=== PATIENT | male | born 1995 | race Two or more races ===

== ENCOUNTER 2018-06-17 19:18 | Emergency (ER) | payer SELFPAY ==
[2018-06-17] MEDS ORDERED: CEPHALEXIN 500 MG CAP PO ONE (19:38)
[2018-06-17] MEDS ORDERED: TDAP ADULT 0.5 ML INJ (BOOSTRIX) IM ONE (19:39)
[2018-06-17 19:42] VITALS: BP 148/91
--- NOTE | 2018-06-17 19:43 | EDPHY ---
H & P Time Seen by Provider: 06/17/18 19:32 HPI/ROS: CHIEF COMPLAINT: Nail gun injury left foot HISTORY OF PRESENT ILLNESS: 22-year-old male with out-of-date tetanus sustained accidental nail gun injury when a nail shot through the dorsal aspect of his foot approximately 4th metatarsal level, through and through. He removed it. Did not enter through the plantar aspect. He is able to bear weight albeit with pain. PHYSICAL EXAM (Prior to examination, patient consented to physical exam, hands were washed and my usual and customary physical exam procedures followed) 1) GENERAL: Well-developed, well-nourished, alert and oriented. Appears to be in no acute distress. 2) HEAD: Normocephalic 3) HEENT: sclera anicteric 4) LUNGS: Breathing comfortably. 5) SKIN: Puncture wound without signs of infection to the 4th metatarsal, through and through. No fetid odor. No erythema. 6) MUSCULOSKELETAL: Tender to palpation osseous structure underlying this. DP PT pulses present and brisk. Constitutional: Initial Vital Signs Temperature (C) 37.5 C 06/17/18 19:40 Heart Rate 74 06/17/18 19:40 Respiratory Rate 16 06/17/18 19:40 Blood Pressure 148/91 H 06/17/18 19:40 O2 Sat (%) 96 06/17/18 19:40 O2 Delivery Mode Room Air Allergies/Adverse Reactions: No Known Allergies Allergy (Unverified 06/17/18 19:42) Home Medications: Medication Instructions Recorded Cephalexin [Keflex] 500 mg PO TID 7 Days cap 06/17/18 MDM/Departure - MDM Imaging Results: Imaging Impressions Foot X-Ray 06/17/18 19:44 Impression: No acute osseous findings. Images reviewed myself Procedures: Procedure: Splint A postop shoe splint was applied by ER electrocardiographic technician after the wound is irrigated. After application of the splint I returned and re-examined the patient. The splint was adequately immobilizing the joint and distal to the splint the patient's circulation and sensation were intact. Patient shows no signs of compartment syndrome. Was given orthopedic precautions. Medications Given: Discontinued Medications Cephalexin HCl (Keflex) 500 mg PO EDNOW ONE PRN Reason: Protocol Stop: 06/17/18 19:39 Last Admin: 06/17/18 19:43 Dose: 500 mg Diphtheria/Tetanus/Acell Pertussis (Boostrix) 0.5 ml IM .ONCE ONE Stop: 06/17/18 19:40 Last Admin: 06/17/18 19:43 Dose: 0.5 ml ED Course/Re-evaluation: Patient's tetanus has been updated, he will be started on prophylactic antibiotics. The nail did not go through the sole of his shoe. Usual and customary wound precautions instructions provided. I saw this patient independently based on established practice protocols. Care of patient under supervision of secondary supervising physician Dr Villasenor . - Depart Disposition: Home, Routine, Self-Care Clinical Impression: Puncture wound of left foot Qualifiers: Encounter type: initial encounter Qualified Code(s): S91.332A - Puncture wound without foreign body, left foot, initial encounter Condition: Good Instructions: Puncture Wound (ED) Additional Instructions: Return to the ER if you develop redness, swelling, discharge, warmth to the wound, red streaks going up your leg, or any other symptoms that concern you. Prescriptions: Cephalexin [Keflex] 500 mg PO TID 7 Days cap Referrals: Ovi Davis MD [Medical Doctor] - 2-3 days, call for appt.
== END 2018-06-17 20:19 | disposition home or self-care (01) ==
DX: S91.332A Puncture wound without foreign body, left foot, initial encounter (principal); Z23 Encounter for immunization; W29.4XXA Contact with nail gun, initial encounter
CPT/HCPCS: L4386

== ENCOUNTER 2018-07-23 22:02 | Emergency (ER) | payer SELFPAY ==
--- NOTE | 2018-07-23 22:13 | EDPHY ---
H & P Stated Complaint: AWOKE TODAY WITH VOMIT, DIZZY, DRANK 2 BEERS LAST NIGHT Time Seen by Provider: 07/23/18 22:13 HPI/ROS: HPI CHIEF COMPLAINT: Nausea, vomiting, lightheadedness after 10 beers last night. HISTORY OF PRESENT ILLNESS: 22-year-old male, Ukrainian-speaking only, park interpreter was used for history and review of systems and physical exam, presents emergency room with lightheadedness, nausea, 4 episodes of nonbilious nonbloody vomiting, after he drank 10-12 beers last night. Patient states he does this about monthly. Has not had nausea vomiting from it before. Denies co ingestion or drugs. Decided come the emergency room as he feels dehydrated has ongoing nausea. Denies chest pain or shortness of breath, denies abdominal pain. Past Medical History: Denies significant medical history Past Surgical History: Denies significant surgical history Social History: Typically drinks 10-12 beers per weekend. Family History: Noncontributory ROS REVIEW OF SYSTEMS: 10 Systems were reviewed and negative with the exception of the elements mentioned in the history of present illness. Exam Constitutional nontoxic, appears dehydrated, triage nursing summary reviewed, vital signs reviewed, awake/alert. Eyes normal conjunctivae and sclera, EOMI, PERRLA. HENT normal inspection, atraumatic, dry mucus membranes, no epistaxis, neck supple/ no meningismus, no raccoon eyes. Respiratory clear to auscultation bilaterally, normal breath sounds, no respiratory distress, no wheezing. Cardiovascular rate normal, regular rhythm, no murmur, no edema, distal pulses normal. Gastrointestinal soft, non-tender, no rebound, no guarding, normal bowel sounds, no distension, no pulsatile mass. Genitourinary no CVA tenderness. Musculoskeletal no midline vertebral tenderness, full range of motion, no calf swelling, no tenderness of extremities, no meningismus, good pulses, neurovascularly intact. Skin pink, warm, & dry, no rash, skin atraumatic. Neurologic awake, alert and oriented x 3, AAOx3, moves all 4 extremities equally, motor intact, sensory intact, CN II-XII intact, normal cerebellar, normal vision, normal speech. Psychiatric normal mood/affect. Heme/Lymph/Immune no lymphadenopathy. Differential Diagnosis: Includes but is not limited to in a particular order alcohol-induced gastritis, alcohol use induced electrolyte disturbance, dehydration, esophagitis, pancreatitis Medical Decision Making: Plan for this patient IV establishment IV fluid bolus , 2 L normal saline, IV Zofran for nausea, basic electrolytes, check Mag. Re-evaluation: 0130: Patient's blood work reviewed. Concentrated H&H in elevated leukocytosis the elevated leukocytosis most likely due to vomiting and dehydration with concentrated blood values. The patient received 2 L of fluid so far has not had any urination. Plan for 3rd L. Obtain urinalysis. And re- evaluate. 0304: Patient re-evaluated this time is feeling much better. He received 3 L of fluid. He is in no acute distress. He is drinking fluids. And resting. Denies any pain anywhere. Ambulated well to the bathroom without difficulty. 0400: Patient re-evaluate is feeling much better. He would like to go home. He ambulated well to the bathroom without any dizziness lightheadedness, denies chest pain shortness of breath. Clinically on exam he was dehydrated. Here in emergency room is received 3 L of fluid. He initially had a high elevated white count due to hemoconcentration, and vomiting. This improved with IV fluids. He has been up to the bathroom urinating and feels much better. Return precautions discussed return if syncope, chest pain, shortness of breath , or not feeling well. Recommend refrain from drinking Source: Patient - Personal History Current Tetanus/Diphtheria Vaccine: Yes - Medical/Surgical History Hx Asthma: No Hx Chronic Respiratory Disease: No Hx Diabetes: No Hx Cardiac Disease: No Hx Renal Disease: No Hx Cirrhosis: No Hx Alcoholism: No Hx HIV/AIDS: No Hx Splenectomy or Spleen Trauma: No Other PMH: DENIES - Social History Smoking Status: Never smoked Constitutional: Initial Vital Signs Temperature (C) 37.4 C 07/23/18 22:05 Heart Rate 82 07/23/18 22:05 Respiratory Rate 18 07/23/18 22:05 Blood Pressure 141/72 H 07/23/18 22:05 O2 Sat (%) 96 07/23/18 22:05 O2 Delivery Mode Room Air Allergies/Adverse Reactions: No Known Allergies Allergy (Unverified 07/23/18 22:05) Home Medications: Medication Instructions Recorded NK [No Known Home Meds] 07/23/18 Medical Decision Making - Data Points Laboratory Results: Laboratory Results 07/24/18 03:00 07/24/18 03:00 07/24/18 07/24/18 07/24/18 03:00 03:00 02:00 WBC 16.77 10^3/uL H 10^3/uL (3.80-9.50) RBC 5.36 10^6/uL 10^6/uL (4.40-6.38) Hgb 15.7 g/dL g/dL (13.7-17.5) Hct 46.6 % % (40.0-51.0) MCV 86.9 fL fL (81.5-99.8) MCH 29.3 pg pg (27.9-34.1) MCHC 33.7 g/dL g/dL (32.4-36.7) RDW 12.9 % % (11.5-15.2) Plt Count 331 10^3/uL 10^3/uL (150-400) MPV 8.8 fL fL (8.7-11.7) Neut % (Auto) 83.8 % H % (39.3-74.2) Lymph % (Auto) 10.6 % L % (15.0-45.0) Valley % (Auto) 4.7 % % (4.5-13.0) Eos % (Auto) 0.1 % L % (0.6-7.6) Baso % (Auto) 0.3 % % (0.3-1.7) Nucleat RBC Rel Count 0.0 % % (0.0-0.2) Absolute Neuts (auto) 14.06 10^3/uL H 10^3/uL (1.70-6.50) Absolute Lymphs (auto) 1.77 10^3/uL 10^3/uL (1.00-3.00) Absolute Monos (auto) 0.79 10^3/uL 10^3/uL (0.30-0.80) Absolute Eos (auto) 0.02 10^3/uL L 10^3/uL (0.03-0.40) Absolute Basos (auto) 0.05 10^3/uL 10^3/uL (0.02-0.10) Absolute Nucleated RBC 0.00 10^3/uL 10^3/uL (0-0.01) Immature Gran % 0.5 % % (0.0-1.1) Immature Gran # 0.08 10^3/uL 10^3/uL (0.00-0.10) Sodium 141 mEq/L mEq/L (135-145) Potassium 3.9 mEq/L mEq/L (3.3-5.0) Chloride 108 mEq/L mEq/L (97-110) Carbon Dioxide 24 mEq/l mEq/l (22-31) Anion Gap 9 mEq/L mEq/L (8-16) BUN 16 mg/dL mg/dL (7-23) Creatinine 0.7 mg/dL mg/dL (0.7-1.3) Estimated GFR > 60 Glucose 102 mg/dL H mg/dL (70-100) Calcium 8.8 mg/dL mg/dL (8.5-10.4) Phosphorus Magnesium Total Bilirubin Conjugated Bilirubin Unconjugated Bilirubin AST ALT Alkaline Phosphatase Total Protein Albumin Lipase Urine Color YELLOW Urine Appearance MODERATELY TURBID Urine pH 5.0 (5.0-7.5) Ur Specific [place] 1.026 (1.002-1.030) Urine Protein NEGATIVE (NEGATIVE) Urine Ketones 1+ H (NEGATIVE) Urine Blood NEGATIVE (NEGATIVE) Urine Nitrate NEGATIVE (NEGATIVE) Urine Bilirubin NEGATIVE (NEGATIVE) Urine Urobilinogen NEGATIVE EU EU (0.2-1.0) Ur Leukocyte Esterase NEGATIVE (NEGATIVE) Urine Glucose NEGATIVE (NEGATIVE) Urine Opiates Screen NEGATIVE (NEGATIVE) Urine Barbiturates NEGATIVE (NEGATIVE) Ur Phencyclidine Scrn NEGATIVE (NEGATIVE) Ur Amphetamine Screen NEGATIVE (NEGATIVE) U Benzodiazepines Scrn NEGATIVE (NEGATIVE) Urine Cocaine Screen NEGATIVE (NEGATIVE) U Marijuana (THC) Screen NEGATIVE (NEGATIVE) 07/23/18 07/23/18 22:30 22:30 WBC 19.78 10^3/uL H 10^3/uL (3.80-9.50) RBC 6.25 10^6/uL 10^6/uL (4.40-6.38) Hgb 18.5 g/dL H g/dL (13.7-17.5) Hct 53.2 % H % (40.0-51.0) MCV 85.1 fL fL (81.5-99.8) MCH 29.6 pg pg (27.9-34.1) MCHC 34.8 g/dL g/dL (32.4-36.7) RDW 12.9 % % (11.5-15.2) Plt Count 403 10^3/uL H 10^3/uL (150-400) MPV 8.8 fL fL (8.7-11.7) Neut % (Auto) 86.1 % H % (39.3-74.2) Lymph % (Auto) 9.4 % L % (15.0-45.0) Valley % (Auto) 3.3 % L % (4.5-13.0) Eos % (Auto) 0.1 % L % (0.6-7.6) Baso % (Auto) 0.4 % % (0.3-1.7) Nucleat RBC Rel Count 0.0 % % (0.0-0.2) Absolute Neuts (auto) 17.04 10^3/uL H 10^3/uL (1.70-6.50) Absolute Lymphs (auto) 1.86 10^3/uL 10^3/uL (1.00-3.00) Absolute Monos (auto) 0.66 10^3/uL 10^3/uL (0.30-0.80) Absolute Eos (auto) 0.01 10^3/uL L 10^3/uL (0.03-0.40) Absolute Basos (auto) 0.07 10^3/uL 10^3/uL (0.02-0.10) Absolute Nucleated RBC 0.00 10^3/uL 10^3/uL (0-0.01) Immature Gran % 0.7 % % (0.0-1.1) Immature Gran # 0.14 10^3/uL H 10^3/uL (0.00-0.10) Sodium 141 mEq/L mEq/L (135-145) Potassium 4.1 mEq/L mEq/L (3.3-5.0) Chloride 104 mEq/L mEq/L (97-110) Carbon Dioxide 21 mEq/l L mEq/l (22-31) Anion Gap 16 mEq/L mEq/L (8-16) BUN 19 mg/dL mg/dL (7-23) Creatinine 0.8 mg/dL mg/dL (0.7-1.3) Estimated GFR > 60 Glucose 139 mg/dL H mg/dL (70-100) Calcium 10.8 mg/dL H mg/dL (8.5-10.4) Phosphorus 4.9 mg/dL H mg/dL (2.5-4.5) Magnesium 1.9 mg/dL mg/dL (1.6-2.3) Total Bilirubin 1.0 mg/dL mg/dL (0.1-1.4) Conjugated Bilirubin 0.2 mg/dL mg/dL (0.0-0.5) Unconjugated Bilirubin 0.8 mg/dL mg/dL (0.0-1.1) AST 24 IU/L IU/L (17-59) ALT 30 IU/L IU/L (21-72) Alkaline Phosphatase 98 IU/L IU/L (38-126) Total Protein 8.9 g/dL H g/dL (6.3-8.2) Albumin 5.2 g/dL H g/dL (3.5-5.0) Lipase 67 IU/L IU/L (23-300) Urine Color Urine Appearance Urine pH Ur Specific [place] Urine Protein Urine Ketones Urine Blood Urine Nitrate Urine Bilirubin Urine Urobilinogen Ur Leukocyte Esterase Urine Glucose Urine Opiates Screen Urine Barbiturates Ur Phencyclidine Scrn Ur Amphetamine Screen U Benzodiazepines Scrn Urine Cocaine Screen U Marijuana (THC) Screen Medications Given: Discontinued Medications Sodium Chloride (Ns) 1,000 mls @ 0 mls/hr IV EDNOW ONE; Wide Open PRN Reason: Protocol Stop: 07/23/18 22:20 Last Admin: 07/23/18 22:29 Dose: 1,000 mls Sodium Chloride (Ns) 1,000 mls @ 0 mls/hr IV EDNOW ONE; Wide Open PRN Reason: Protocol Stop: 07/23/18 22:20 Last Admin: 07/23/18 22:29 Dose: 1,000 mls Sodium Chloride (Ns) 1,000 mls @ 0 mls/hr IV ONCE ONE PRN Reason: Wide Open Stop: 07/24/18 01:24 Last Admin: 07/24/18 01:26 Dose: 1,000 mls Ondansetron HCl (Zofran) 4 mg IVP EDNOW ONE Stop: 07/23/18 22:20 Last Admin: 07/23/18 22:29 Dose: 4 mg Departure - Departure Disposition: Home, Routine, Self-Care Clinical Impression: Dehydration Condition: Good Instructions: Dehydration (ED) Additional Instructions: 1. Maries diet over the next 24-48 hours. 2. Stay well-hydrated. 3. Return to the ER for worsening symptoms. Referrals: NONE *PRIMARY CARE P,. [Primary Care Provider] - As per Instructions [facility],. [Clinic] - As per Instructions Print Language: Ukrainian
[2018-07-23] MEDS ORDERED: ONDANSETRON 4 MG/2 ML VIAL IVP ONE (22:19)
[2018-07-23] MEDS ORDERED: NS 1,000 ML IV ONE ×2 (22:19)
[2018-07-23 22:41] LABS: PLATELET COUNT 403 10^3/uL (150-400)
[2018-07-24] MEDS ORDERED: NS 1,000 ML IV ONE (01:23)
[2018-07-24 03:22] LABS: PLATELET COUNT 331 10^3/uL (150-400)
[2018-07-24 03:33] VITALS: BP 122/71
== END 2018-07-24 04:08 | disposition home or self-care (01) ==
DX: E86.0 Dehydration (principal)
CPT/HCPCS: 80305; 96374; J2405

== ENCOUNTER 2018-07-25 12:39 | Emergency (ER) | payer SELFPAY ==
[2018-07-25] MEDS ORDERED: ONDANSETRON DISINTEGRATING 4 MG TAB PO ONE (13:49)
[2018-07-25] MEDS ORDERED: MECLIZINE HCL 25 MG TAB PO ONE (13:49)
--- NOTE | 2018-07-25 13:53 | EDPHY ---
General Time Seen by Provider: 07/25/18 13:50 Narrative: CHIEF COMPLAINT: "Dizzy" HISTORY OF PRESENT ILLNESS: Patient presents by private friend bedside. Complains dizziness. He describes the dizziness as a spinning sensation. It started Wednesday morning and has been intermittently present. It comes and goes. It is significantly worse when he turns his head to the right it when he stands up. It improves as he holds still sits still. Associated with nausea and several episodes of vomiting. No headache. No neck pain or stiffness. No fever. Minimal complaints to the left. He has no unilateral complaints. No weakness. No chest pain. He was evaluated here on Wednesday and treated for dehydration with IV fluid and did feel better for short period time. No other associated complaints or modifying factors. HPI obtained using the hospital's certified Irish foreign language instructor at bedside in patient's room. REVIEW OF SYSTEMS: 10 systems were reviewed and negative with the exception of the elements mentioned in the history of present illness. PCP: Svitlana Varela SPECIALISTS: None PAST MEDICAL HISTORY: Denies any medical diagnoses PAST SURGICAL HISTORY: No surgical history SOCIAL HISTORY: Nonsmoker. Lives and works here independently. Drinks alcohol on the weekends FAMILY HISTORY: Noncontributory EXAMINATION: General Appearance: Alert, no distress Head: normocephalic, atraumatic Eyes: Pupils equal and round, no conjunctival pallor or injection. EOMs are symmetric. There is horizontal nystagmus. No vertical nystagmus. No dysconjugate gaze. ENT, Mouth: Mucous membranes moist Neck: Normal inspection, supple, non-tender Respiratory: Lungs are clear to auscultation Cardiovascular: Regular rate and rhythm Gastrointestinal: Abdomen is soft and nontender Back: non-tender, no bony abnormalities Neurological: GCS 15. A&O, nonfocal, normal gait Skin: Warm and dry, no rash Extremities: Nontender, no pedal edema Physical exam performed using the [facility]'s certified Irish foreign language instructor at bedside in patient's room. DIFFERENTIAL DIAGNOSES: Including but not limited to vertigo, CVA, dehydration, conduction delay, near- syncope MDM: 1:45 p.m. Suspected vertigo with patient complains of dizzy without any presyncope or syncope. No chest pain. He does have history examination that suggest vertigo with horizontal nystagmus. No vertical nystagmus. He has a normal steady gait. His symptoms lateralize to the right on Coty-Hallpike test. He has been treated here for dehydration recently with minimal improvement. He has not been on any medications for this. He has no abnormality of the TMs. No barotrauma. I have ordered p.o. Medications for him. 2:30 p.m. Patient re-evaluated. He is feeling much better. He is ambulated to the restroom without any vomiting. I do feel it is reasonable for him to be discharged home without further test interventions. I do not feel he warrants CT scan MRI at this time. We discussed discharge home with meclizine and nausea medication as needed. We discussed driving restrictions. 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 All this has been done using the Irish foreign language instructor at bedside. He is comfortable this plan. He has been ambulated in the emergency department. Discharged home stable condition. SUPERVISION: This patient was independently evaluated without direct involvement of or examination by the attending physician. CONSULTATION: None. ENT referral - History Smoking Status: Never smoked - Objective Vital Signs: Initial Vital Signs Temperature (C) 98.6 F 07/25/18 12:52 Heart Rate 74 07/25/18 12:52 Respiratory Rate 18 07/25/18 12:52 Blood Pressure 136/83 H 07/25/18 12:52 O2 Sat (%) 95 07/25/18 12:52 O2 Delivery Mode Room Air Allergies/Adverse Reactions: No Known Allergies Allergy (Unverified 07/25/18 12:55) Home Medications: Medication Instructions Recorded Meclizine HCl [Meclizine HCl 25 mg 25 mg PO BID PRN #10 tab 07/25/18 (RX,OTC)] Ondansetron Odt [Zofran Odt 4 mg 4 mg PO Q6 PRN #12 tab 07/25/18 (*)] Promethazine HCl [Phenergan 25mg 25 mg PO Q8 PRN #12 tab 07/25/18 (*)] Medications Given: Discontinued Medications Meclizine HCl (Meclizine Hcl) 25 mg PO EDNOW ONE Stop: 07/25/18 13:50 Last Admin: 07/25/18 13:54 Dose: 25 mg Ondansetron HCl (Zofran Odt) 4 mg PO EDNOW ONE Stop: 07/25/18 13:50 Last Admin: 07/25/18 13:54 Dose: 4 mg Departure - Departure Disposition: Home, Routine, Self-Care Clinical Impression: Benign positional vertigo Qualifiers: Laterality: right Qualified Code(s): H81.11 - Benign paroxysmal vertigo, right ear Condition: Fair Instructions: Vertigo (ED), Driving Restrictions (ED) Additional Instructions: 1. Increase fluid intake for the next 48 hours 2. Meclizine as prescribed as needed 3 times daily 3. Nausea medication as prescribed as needed 4. Driving precautions as discussed until symptoms completely resolve 5. Contact primary care physician to be seen week 6. ED precautions as discussed 1. Aumentar mcintyre ingestion de liquidos sobre las proximas 48 horas. 2. Meclizine eladia recetado eladia sea necesario 3 veces por shala. 3. Medicina para nausea eladia recetada eladia sea necesario. 4. Precauciones para manejar eladia discutimos hasta que qian sintomas hayan completamente resuelto. 5. Contactar mcintyre DrTara de cuidado primario en jameson semana. 6. Precauciones de Emergencia eladia discutimos. Referrals: Physician,Emergency Dept, [Medical Doctor] - As per Instructions [facility]. [Clinic] - As per Instructions Cayetano Ferro MD [Medical Doctor] - As per Instructions Stand Alone Forms: Work Excuse Prescriptions: Meclizine HCl [Meclizine HCl 25 mg (RX,OTC)] 25 mg PO BID PRN #10 tab PRN Reason: Dizziness Ondansetron Odt [Zofran Odt 4 mg (*)] 4 mg PO Q6 PRN #12 tab PRN Reason: Nausea/Vomiting, Use 1st Promethazine HCl [Phenergan 25mg (*)] 25 mg PO Q8 PRN #12 tab PRN Reason: Nausea/Vomiting, Use 1st Print Language: Irish
[2018-07-25 14:44] VITALS: BP 151/87
== END 2018-07-25 15:01 | disposition home or self-care (01) ==
DX: H81.11 Benign paroxysmal vertigo, right ear (principal)

== ENCOUNTER 2018-10-14 18:23 | Emergency (ER) | payer OTHER ==
--- NOTE | 2018-10-14 21:01 | EDPHY ---
H & P Time Seen by Provider: 10/14/18 19:49 HPI/ROS: Chief complaint: Lip laceration History of present illness: This is a 22-year-old male who presents to the emergency department for a lip laceration. He was installing a 2X4 when it slipped and struck his superior lip, cutting it. Minimal pain. Minimal bleeding. He denies other trauma. His teeth are intact. He is opening and closing his mouth without difficulty. No report of trauma to the rest of the head or neck, no headache or neck pain, no neurologic symptoms. His tetanus is up-to-date. Smoking Status: Never smoked Physical Exam: General: Alert, nontoxic. Eyes: PERRLA. Skin: There is a 1 cm vertically oriented laceration to the superior central lip that crosses the vermilion border. Mouth/ENT: All teeth are stable to palpation. She is opening closing his mouth without difficulty. He reports normal bite. Musculoskeletal: The face, head and spine are nontender to palpation. Neurologic: Alert and oriented x4. Constitutional: Initial Vital Signs Temperature (C) 36.8 C 10/14/18 18:32 Heart Rate 70 10/14/18 18:32 Respiratory Rate 16 10/14/18 18:32 Blood Pressure 146/96 H 10/14/18 18:32 O2 Sat (%) 98 10/14/18 18:32 O2 Delivery Mode Room Air Allergies/Adverse Reactions: No Known Allergies Allergy (Verified 10/14/18 18:31) Home Medications: Medication Instructions Recorded NK [No Known Home Meds] 10/14/18 MDM/Departure - MDM Procedures: Procedure: Laceration repair. Verbal consent was obtained from the patient. The 1 cm laceration on the superior lip, crossing the vermilion border was anesthetized in the usual fashion. The wound was irrigated, draped and explored to its base with a gloved finger. There were no deep structures involved. No tendon injury was identified. The wound was repaired with 6 0 Prolene, 4 simple interrupted sutures. The wound repair was moderately complex repair requiring approximation of a cosmetically important area. The procedure was performed by myself. ED Course/Re-evaluation: Patient seen under the supervision of my secondary supervising physician Dr. Valdemar Magallanes. Patient presents to the emergency department for a lip laceration. By history and physical exam no further trauma. The wound is cleaned and repaired with good approximation. His tetanus is already up-to- date. Home care is discussed including wound care. Stitches to be removed in 7 days. Return precautions are given. The patient voiced understanding and agreement with plan. - Depart Disposition: Home, Routine, Self-Care Clinical Impression: Lip laceration Qualifiers: Encounter type: initial encounter Qualified Code(s): S01.511A - Laceration without foreign body of lip, initial encounter Condition: Good Instructions: Care For Your Stitches (ED), Laceration (ED), Acute Wounds (ED) Additional Instructions: Follow-up with a primary care doctor for continued evaluation and care Stitches to be removed in 7 days If symptoms worsen or new symptoms develop return to the emergency department for recheck - Sami seguimiento con mcintyre doctor de cabecera para continua evaluacion - Las suturas pueden ser removidad en 7 kimbrough - Si lo sintomas empeoran o si desarrolla nuebos sintomas regrese a la lissette de emergencia Referrals: NONE *PRIMARY CARE P,. [Primary Care Provider] - As per Instructions [facility],. [Clinic] - As per Instructions
[2018-10-15 01:27] VITALS: BP 118/65
== END 2018-10-21 19:08 | disposition home or self-care (01) ==
PROC: 0CQ0XZZ Repair Upper Lip, External Approach (ICD-10-PCS; principal; 2018-10-14)
DX: S01.511A Laceration without foreign body of lip, initial encounter (principal); W22.8XXA Striking against or struck by other objects, initial encounter

== ENCOUNTER 2018-12-06 15:41 | Emergency (ER) | payer OTHER ==
--- NOTE | 2018-12-06 16:19 | EDPHY ---
H & P Time Seen by Provider: 12/06/18 16:18 HPI/ROS: CHIEF COMPLAINT: Left medial ankle pain HISTORY OF PRESENT ILLNESS: Patient is a 23-year-old male with complaint of left medial ankle pain since last . He states he was playing soccer and rolled his ankle. He has been able to bear weight since but has had persistent even worsening pain. Denies any numbness or weakness. Takes no prescribed medications. He has never hurt this ankle before. Pain is worse with ambulation and range of motion. ROS As detailed in HPI Smoking Status: Never smoked Physical Exam: General: Alert and oriented. Nontoxic appearing. No acute distress HEENT: Pupils PERRLA. No oral lesions. Cardiopulmonary: Regular rate and rhythm. No lower extremity edema Skin: [place] warm and dry. No lesions. Muscle skeletal: Moving all 4 extremities. Equal strength in upper extremities and lower extremities. Ambulatory with plan. Ecchymosis and swelling to the medial left ankle. Neurovascular intact distal left ankle. Constitutional: Initial Vital Signs Temperature (C) 36.8 C 12/06/18 15:44 Heart Rate 70 12/06/18 15:44 Respiratory Rate 16 12/06/18 15:44 Blood Pressure 144/73 H 12/06/18 15:44 O2 Sat (%) 96 12/06/18 15:44 O2 Delivery Mode Room Air Allergies/Adverse Reactions: No Known Allergies Allergy (Verified 10/14/18 18:31) Home Medications: Medication Instructions Recorded Hydrocodone/APAP 5/325 [[place] 1 tab PO Q6 #12 tab 12/06/18 5/325 (*)] Medical Decision Making ED Course/Re-evaluation: Patient here with ground level fall resulting in distal radius fracture. She is neurovascular intact no signs of compartment syndrome. The fracture does not require emergent management she was placed in a sugar-tong splint was neurovascular intact after splint placement. Pain was well controlled with [place] in the ER. She was provided with orthopedic follow-up. Departure - Departure Disposition: Home, Routine, Self-Care Clinical Impression: Fractured medial malleolus Condition: Good Instructions: Ankle Fracture (ED) Additional Instructions: Follow-up with Orthopedics tomorrow the next day. You're not wean bearing on the affected extremity. Use crutches for ambulation. Elevate the extremity as often as possible. Referrals: Elicia Spencer CNM [Primary Care Provider] - As per Instructions Sidney Frank MD [Medical Doctor] - As per Instructions Prescriptions: Hydrocodone/APAP [[place] [id number] (*)] 1 tab PO Q6 #12 tab
[2018-12-06 17:48] VITALS: BP 136/84
== END 2018-12-06 17:45 | disposition home or self-care (01) ==
PROC: 2W3RX1Z Immobilization of Left Lower Leg using Splint (ICD-10-PCS; principal; 2018-12-06)
DX: S82.52XA Displaced fracture of medial malleolus of left tibia, initial encounter for closed fracture (principal); W18.49XA Other slipping, tripping and stumbling without falling, initial encounter; Y93.66 Activity, soccer; Y92.322 Soccer field as the place of occurrence of the external cause

== ENCOUNTER 2018-12-16 10:37 | Day surgery (SDC) | payer OTHER ==
--- NOTE | 2018-12-16 08:13 | PDGENHP ---
History & Physical Chief Complaint: left displaced medial malleolar fracture History of Present Illness: Freddie is a pleasant 23 year old male with left ankle medial malleolus fracture sustained while playing soccer on 12/03/18. We discussed risks, benefits, alternatives to both surgical and conservative treatment and he would like to proceed with surgical intervention. Pertinent Past, Social, Family History: PMH: non. FH: non-contributory. SH: non-smoker Relevant Physical Exam: Upon evaluation of the left ankle, he is in a well fitting posterior splint. Digits are neurovascularly intact with sensation intact to light touch and brisk cap refill. Patient ambulates with the assistance of crutches. Cardiorespiratory Assessment: RRR, CTAB
--- NOTE | 2018-12-16 08:18 | GHP ---
[f rep st] PREOP HISTORY AND PHYSICAL DATE OF ADMISSION: 12/16/2018 DATE OF SURGERY: 12/16/2018. ADMISSION DIAGNOSIS: Displaced left medial malleolus fracture. PLANNED PROCEDURE: Open reduction, internal fixation, medial malleolus fracture, left ankle. PRIOR MEDICAL HISTORY: None prior. SURGICAL HISTORY: None. MEDICATIONS: None. ALLERGIES: No known drug allergies. SOCIAL HISTORY: [place] town. He is [place] speaking. Reports occasional alcohol use. Does not smoke. REVIEW OF SYSTEMS: No chest pain. No shortness of breath. Otherwise, review of systems is unremark able. PHYSICAL EXAM: VITAL SIGNS: He is 5 feet 6 inches tall, weighs 160 pounds. Blood pressure is 128/64 , heart rate 72, respiratory rate is 12 on room air. GENERAL: Alert and oriented x3. HEENT: Normoc ephalic, atraumatic. Extraocular muscles intact. NECK: Supple. There is no lymphadenopathy. No J VD. CHEST: Clear to auscultation. CARDIOVASCULAR: Regular rate and rhythm. ABDOMEN: Soft, nonte nder, nondistended. EXTREMITIES: Left ankle is swollen. There is deformity over the medial malleolu s. The foot and toes are swollen and bruised. Moving toes well. Sensation to light touch is intact . Compartments are soft. Achilles tendon is intact. IMAGING: X-rays from [facility] are reviewed; 3 views of the ankle show a displaced me dial malleolus fracture. There is no mortise widening. No fibular pathology. ASSESSMENT: Displaced medial malleolus fracture, left ankle. PLAN: I recommend proceeding with open reduction, internal fixation of the medial malleolus fracture . This was described in detail. He will be nonweightbearing for the first 6 weeks postoperatively a nd initially will be in a postoperative splint followed by a boot. Risks and benefits including nonu nion, malunion, need for additional surgery, possible hardware removal in the future, infection and b lood clots were all discussed. He understands these risks and wishes to proceed. We will plan on wednesday at the hospital. Preoperative paperwork was completed. /[id number]/MODL
[2018-12-16] MEDS ORDERED: BUPIVACAINE/EPI 0.5% 30 ML SDV ONE (10:47)
[2018-12-16] MEDS ORDERED: POLYMYXIN B SULFATE 500,000 UNIT/10 ML SYR IRR ONE (10:48)
[2018-12-16] MEDS ORDERED: ceFAZolin 2 GM/DEXTROSE 100 ML IV ONE (10:49)
[2018-12-16] MEDS ORDERED: BACITRACIN 50,000 UNITS/10 ML SYR IRR ONE (10:49)
[2018-12-16] MEDS ORDERED: LR 1,000 ML IV ONE (10:51)
[2018-12-16] MEDS ORDERED: LIDOCAINE 1% 2 ML INJ ID PRN (10:51)
[2018-12-16] MEDS ORDERED: MIDAZOLAM 2 MG/2 ML VIAL IVP ONE (11:19)
--- NOTE | 2018-12-16 11:20 | PDANEPAE ---
ANE History of Present Illness L Med Malleolus frx ANE Past Medical History - Cardiovascular History Hx Hypertension: No Hx Arrhythmias: No Hx Chest Pain: No Hx Coronary Artery / Peripheral Vascular Disease: No Hx CHF / Valvular Disease: No Hx Palpitations: No - Pulmonary History Hx COPD: No Hx Asthma/Reactive Airway Disease: No Hx Recent Upper Respiratory Infection: No Hx Oxygen in Use at Home: No - Neurologic History Hx Cerebrovascular Accident: No Hx Seizures: No Hx Dementia: No - Endocrine History Hx Diabetes: No - Renal History Hx Renal Disorders: No - Liver History Hx Hepatic Disorders: No - Neurological & Psychiatric Hx Hx Neurological and Psychiatric Disorders: No - Cancer History Hx Cancer: No - Congenital Disorder History Hx Congenital Disorders: Yes 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 - GI History Hx Gastrointestinal Disorders: No - Chronic Pain History Chronic Pain: No - Surgical History Prior Surgeries: NONE ANE Review of Systems Review of systems is: negative Review of Systems: - Exercise capacity Exercise capacity: >=4 METS METS (RN): 6 METS ANE Patient History - Allergies Allergies/Adverse Reactions: No Known Allergies Allergy (Verified 10/14/18 18:31) - NPO status NPO Status: no food or drink >8 hours - Anes Hx Anes Hx: no prior problems - Smoking Hx Smoking Status: Never smoked Marijuana use: No - Alcohol Use Alcohol Use: Rarely - Family Anes Hx Family Anes Hx: none Family Hx Anesthesia Complications: NONE ANE Labs/Vital Signs - Vital Signs Vital Signs: reviewed preoperatively; see RN documention for details Height: 167.64 cm Weight: 73.028 kg ANE Physical Exam - Airway Neck exam: FROM Mallampati Score: Class 1 Mouth exam: normal dental/mouth exam - Pulmonary Pulmonary: no respiratory distress - Cardiovascular Cardiovascular: regular rate and rhythym - ASA Status ASA Status: I ANE Anesthesia Plan Anesthesia Plan: GA w LMA
[2018-12-16] MEDS ORDERED: LIDOCAINE 2% 5 ML SDV ONE (11:37)
[2018-12-16] MEDS ORDERED: PROPOFOL 200 MG/20 ML VIAL ONE (11:37)
[2018-12-16] MEDS ORDERED: fentaNYL 100 MCG/2 ML INJ ONE ×2 (11:37→11:57)
[2018-12-16] MEDS ORDERED: ALBUTEROL 3 ML DEYVIAL IH PRN (12:24)
[2018-12-16] MEDS ORDERED: ONDANSETRON 4 MG/2 ML VIAL IVP PRN (12:24)
[2018-12-16] MEDS ORDERED: NALOXONE HCL 0.4 MG/ML INJ IVP PRN (12:24)
[2018-12-16] MEDS ORDERED: fentaNYL 100 MCG/2 ML INJ IVP PRN (12:24)
[2018-12-16] MEDS ORDERED: oxyCODONE IR 5 MG TAB PO PRN (12:24)
[2018-12-16] MEDS ORDERED: ACETAMINOPHEN 500 MG TAB PO PRN (12:24)
[2018-12-16] MEDS ORDERED: PROMETHAZINE HCL 25 MG/ML INJ IVP PRN (12:24)
--- NOTE | 2018-12-16 12:24 | POSTANESTH ---
Post Anesthetic Evaluation Cardiovascular Status: Normal, Stable Respiratory Status: Normal, Stable Level of Consciousness/Mental Status: Can Participate in Eval, Mildly Sleepy, Arousable Pain Control: Adequate, Prn Tx Ordered Nausea/Vomiting Control: Adequate, Prn Tx Ordered Complications Possibly Related to Anesthesia: None Noted
--- NOTE | 2018-12-16 12:26 | POSTOPPROG ---
Post Op Note Date of Operation: 12/16/18 Surgeon: Sidney Frank Anesthesiologist: warren Anesthesia: GET(General Endotracheal) Pre-op Diagnosis: displaced medial malleolus fracture left Post-op Diagnosis: same Procedure: ORIF medial maleolus left Findings: displaced fx Inf/Abcess present in the surg proc area at time of surgery?: No EBL: Minimal Complications: none
[2018-12-16 14:23] VITALS: BP 129/79
--- NOTE | 2018-12-16 20:30 | GOP ---
[f rep st] OPERATIVE REPORT DATE OF OPERATION: 12/16/2018 SURGEON: Sidney Frank MD ANESTHESIA: General. ANESTHESIOLOGIST: Cayetano Bran MD. PREOPERATIVE DIAGNOSIS: Displaced, left, medial malleolar fracture. POSTOPERATIVE DIAGNOSIS: Displaced, left, medial malleolar fracture. PROCEDURE PERFORMED: Open reduction and internal fixation, medial malleolar fracture, left ankle. FINDINGS: INDICATIONS: The patient is a healthy 23-year-old male who sustained a displaced medial malleolar fr acture playing soccer about a week ago. Decision was made to proceed with an open reduction and inte rnal fixation due to the displaced nature of the fracture. DESCRIPTION OF PROCEDURE: After appropriate informed consent was obtained, patient was taken to the operating room and placed supine on the operating table. Time-out was performed. Patient was identi fied. Correct site was identified, matched with radiographs available in the room. He received 2 g of Ancef preoperatively. Following general endotracheal tube anesthesia, the left lower extremity pr epped and draped in the usual sterile fashion, exsanguinated the limb, inflated the tourniquet to 250 mmHg. Total tourniquet time was 15 minutes. I made an incision over the medial malleolus. Soft ti ssue was freed from within the fracture fragments. I then reduced the fragment with 2 partially thre aded K-wires, confirmed their positioning with AP and lateral fluoroscopic imaging. We then drilled the cortex and placed 2 partially threaded 4.0 cannulated screws tightening down the fracture nicely. Wires were removed. Final imaging was obtained. There was no medial mortise widening. The fractu re was reduced nicely both on the AP and lateral images. The wound was irrigated. Deep layer was cl osed with 2-0 Vicryl. Skin was closed with interrupted 3-0 nylon sutures. I instilled 20 mL of 0.5% Marcaine with epinephrine around the incision. Sterile dressing and a posterior splint with the ank le in neutral dorsiflexion was applied. Patient was awakened from anesthesia and taken to recovery r oom in satisfactory condition. There were no immediate intraoperative complications. TOTAL TOURNIQUET TIME: 15 minutes at 250 mmHg. COMPLICATIONS: None. DRAINS: None. IMPLANTS USED: PrestoSports 4.0 cannulated screws x2, 40 mm in length. /[id number]/MODL
== END 2018-12-16 15:12 | disposition home or self-care (01) ==
LOC: FSGY 10:37
PROVIDERS: ATTEND Orthopaedic Surgery
PROC: 0QSH04Z Reposition Left Tibia with Internal Fixation Device, Open Approach (ICD-10-PCS; principal; 2018-12-16 11:45)
DX: S82.52XA Displaced fracture of medial malleolus of left tibia, initial encounter for closed fracture (principal); Y93.66 Activity, soccer
CPT/HCPCS: C1713; J0690; J2250; J2704; J3010

== ENCOUNTER 2019-04-19 20:55 | Emergency (ER) | payer OTHER | END 2019-04-19 21:20 | disposition home or self-care (01) ==